=== PATIENT | female | born 1995 | race Caucasian/White ===

== ENCOUNTER 2018-02-16 15:19 | Emergency (ER) | payer BC ==
[2018-02-16 15:59] VITALS: BP 114/69
--- NOTE | 2018-02-16 16:25 | UC ---
Respiratory Complaint HPI - HPI Summary HPI Summary: Pt presents with c/o dry, non productive cough X 2 weeks. Denies, fever, URI like symptoms or hx of asthma. - History of Current Complaint Chief Complaint: UCRespiratory Stated Complaint: COUGH X 2 WKS Time Seen by Provider: 02/16/18 16:03 Hx Obtained From: Patient Hx Last Menstrual Period: 02/11/18 ?: No Onset/Duration: Sudden Onset, Lasting Weeks, Still Present Timing: Intermittent Episodes Severity Initially: Mild Severity Currently: None Pain Intensity: 0 Character: Cough: Nonproductive Aggravating Factors: Deep Breaths, Recumbent Position Alleviating Factors: Spontaneous Resolution Associated Signs And Symptoms: Positive: Negative - Risk Factors Pulmonary Embolism Risk Factors: Negative Cardiac Risk Factors: Negative Pseudomonas Risk Factors: Negative Tuberculosis Risk Factors: Negative - Allergies/Home Medications Allergies/Adverse Reactions: Allergies Allergy/AdvReac Type Severity Reaction Status Date / Time No Known Allergies Allergy Verified 02/16/18 15:56 PMH/Surg Hx/FS Hx/Imm Hx Previously Healthy: Yes - Surgical History Surgical History: Yes Surgery Procedure, Year, and Place: right knee 2013 - Family History Known Family History: Positive: Cardiac Disease - Social History Occupation: Student [employer] Lives: Dormitory/Roommates Alcohol Use: Occasionally Substance Use Type: None Smoking Status (MU): Never Smoked Tobacco Have You Smoked in the Last Year: No - Immunization History Vaccination Up to Date: Yes Review of Systems All Other Systems Reviewed And Are Negative: Yes Constitutional: Positive: Negative Skin: Positive: Negative Eyes: Positive: Negative ENT: Positive: Negative Respiratory: Positive: Cough Cardiovascular: Positive: Negative Gastrointestinal: Positive: Negative Genitourinary: Positive: Negative Motor: Positive: Negative Neurovascular: Positive: Negative Musculoskeletal: Positive: Negative Neurological: Positive: Negative Psychological: Positive: Negative Is Patient Immunocompromised?: No Physical Exam Triage Information Reviewed: Yes Appearance: Well-Appearing Vital Signs: Initial Vital Signs Temp 98.1 F 02/16/18 15:55 Pulse 67 02/16/18 15:55 Resp 14 02/16/18 15:55 BP 114/69 02/16/18 15:55 Pulse Ox 98 02/16/18 15:55 Vital Signs Reviewed: Yes Eye Exam: Normal ENT Exam: Normal Dental Exam: Normal Neck exam: Normal Respiratory Exam: Normal Cardiovascular Exam: Normal Musculoskeletal Exam: Normal Neurological Exam: Normal Psychological Exam: Normal Skin Exam: Normal UC Diagnostic Evaluation - Laboratory O2 Sat by Pulse Oximetry: 98 Respiratory Course/Dx - Differential Dx/Diagnosis Differential Diagnosis/HQI/PQRI: Bronchitis Provider Diagnoses: reactive airway. cough Discharge - Sign-Out/Discharge Documenting (check all that apply): Patient Departure All imaging exams completed and their final reports reviewed: No Studies - Discharge Plan Condition: Stable Disposition: HOME Prescriptions: Cetirizine* [ZyrTEC 10 MG TAB*] 10 mg PO DAILY #10 tab predniSONE TAB* [Deltasone 20 MG TAB*] 20 mg PO DAILY #4 tab Patient Education Materials: Acute Cough (ED) Referrals: [facility] [Outside] - If Needed No Primary Care Phys,NOPCP [Primary Care Provider] - - Billing Disposition and Condition Condition: STABLE Disposition: Home
== END 2018-02-16 16:33 | disposition home or self-care (01) ==
LOC: UCCORT 15:19
DX: J45.909 Unspecified asthma, uncomplicated (principal); R05 Cough
CPT/HCPCS: 99202; G0463

== ENCOUNTER 2019-02-13 12:05 | Emergency (ER) | payer BC ==
[2019-02-13 14:02] VITALS: BP 134/75
--- NOTE | 2019-02-13 14:10 | UC ---
Complaint Female HPI - HPI Summary HPI Summary: 24 y/o female present to the urgent care c/o FIELD, body aches, chills, night swats , nasal congestion w/ clear nasal discharge and lower back pain for the past 2 days. Pt also c/o of itchy vaginal discharge w/ slight itchiness for the past week. Pt denies fever, SOB, cough, chest pain, dizziness, abdominal pain, flank pain, pelvic pain, dysuria or Hx of STD's. LMP:02/09/2019 w/ regular menstrual cycles. She has not taken anything to alleviate symptoms. - History Of Current Complaint Chief Complaint: UCGeneralIllness Stated Complaint: FEVER, CHILLS, BACK PAIN Time Seen by Provider: 02/13/19 13:59 Hx Obtained From: Patient Hx Last Menstrual Period: 02/09 Onset/Duration: Gradual Onset, Lasting Weeks - 1 week vaginal discharge, Still Present, Other - FIELD and body aches , celar nasal congestion x 3 days Timing: Lasting Weeks - 1 week vaginal discharge Severity Initially: Mild Severity Currently: Mild Pain Intensity: 4 - FIELD and body aches Pain Scale Used: 0-10 Numeric Character: Dull Aggravating Factor(s): Lluveras Alleviating Factor(s): Nothing Associated Signs And Symptoms: Positive: Back Pain - lower mild, Vaginal Discharge - w/ an odor. Negative: Nausea, Vomiting(# Of Episodes =), Genital Swelling, Genital Blisters - Risk Factors Ectopic Risk Factor: Negative Ovarian Torsion Risk Factor: Negative - Allergies/Home Medications Allergies/Adverse Reactions: Allergies Allergy/AdvReac Type Severity Reaction Status Date / Time No Known Allergies Allergy Verified 02/13/19 14:02 Home Medications: Home Medications Acetaminophen [Non-Aspirin] 650 mg PO Q10H PRN 02/13/19 [History Confirmed 02/13] Ibuprofen TAB* [Motrin TAB* 400 MG] 400 mg PO Q10H PRN 02/13/19 [History Confirmed 02/13/19] Norethindr/Eth Estradiol(Nf) [Lo Loestrin Fe (NF)] 1 tab PO QPM 02/13/19 [ History Confirmed 02/13/19] PMH/Surg Hx/FS Hx/Imm Hx Previously Healthy: Yes - Pt denies PMHX - Surgical History Surgical History: Yes Surgery Procedure, Year, and Place: right knee 2013 - Family History Known Family History: Positive: Cardiac Disease, Diabetes - Social History Occupation: Employed Full-time Lives: With Family Alcohol Use: Occasionally Substance Use Type: None Smoking Status (MU): Never Smoked Tobacco Have You Smoked in the Last Year: No - Immunization History Vaccination Up to Date: Yes Review of Systems All Other Systems Reviewed And Are Negative: Yes Constitutional: Positive: Chills, Fatigue, Other - body aches Skin: Positive: Negative Eyes: Positive: Negative ENT: Positive: Nasal Discharge - clear, Sinus Congestion Respiratory: Positive: Negative Cardiovascular: Positive: Negative Gastrointestinal: Positive: Negative Genitourinary: Positive: Vaginal/Penile Itching, Vaginal/Penile Discharge - white, Other - mild lower back pain Motor: Positive: Negative Neurovascular: Positive: Negative Musculoskeletal: Positive: Negative Neurological: Positive: Headache Psychological: Positive: Negative Is Patient Immunocompromised?: No Physical Exam - Summary Physical Exam Summary: Vital signs: reviewed General: well developed, well nourished female adolescent sitting in the examining table w/o any acute distress. Head: Normocephalic, no lesions. Eyes: PERRLA, EOM's full, conjunctiva clear, fundi grossly normal. Ears: EAC's clear, TM's normal. Nose: Mucosa edmatous w/ clear nasal discharge,, no obstruction. Throat: Clear, no exudates, no lesions. Neck: Supple, no masses, no thyromegaly, no bruits. Chest: Lungs clear, no rales, no rhonchi, no wheezes. Heart: RR, no murmurs, no rubs, no gallops. Abdomen: Soft, no tenderness, no masses, BS normal. Pelvic: I was assisted by nurse Brina. External genitalia within normal limits. There is no lesions there is no masses noted. Speculum exam: The vaginal moncada are within normal limits w/ greyish white vaginal discharge, no lesions or rashes. The cervix is closed with no lesions or masses. There is no CMT's, and no adnexal masses. Sample sent to Lab for Affirm panel. Rectal: No lesions, no hemorrhoids, Back: Normal curvature, no tenderness. Extremities: FROM, no deformities, no edema, no erythema. Neuro: Physiological, no localizing findings. Skin: Normal, no rashes, no lesions noted. Triage Information Reviewed: Yes Vital Signs: Initial Vital Signs Temp 98.6 F 11/08/19 13:53 Pulse 95 02/13/19 13:53 Resp 18 02/13/19 13:53 BP 134/75 02/13/19 13:53 Pulse Ox 100 02/13/19 13:53 Complaint Female Dx - Course Course Of Treatment: 24 y/o female present to the urgent care c/o FIELD, body aches, chills, night swats , nasal congestion w/ clear nasal discharge and lower back pain for the past 2 days. Pt also c/o of itchy vaginal discharge w/ slight itchiness for the past week. Pt denies fever, SOB, cough, chest pain, dizziness, abdominal pain, flank pain, pelvic pain, dysuria or Hx of STD's. LMP:02/09/2019 w/ regular menstrual cycles. She has not taken anything to alleviate symptoms. Hx obtained. Pt is hemodynamically stable, Vitals : WNL. Pt w/ URI on PE. Rapid influenza A&B, negative. I was assisted by Nurse Gonsalves for pelvic exam. Pt w/ a greyish white cottage cheese vaginal discharge on pelvic examination. UA: trace of blood. Pt still w/ scant menstrual cycle. Pt w/ probably Vulvovaginal candidiasis and BV. Pt Rt Metrogel and Fluconazole PO. as directed below to alleviate symptoms. Sample sent to Lab for Affirm panel to r/o any abnormality. Pt will be notified of result. UA: trace of leukesterase. Pt advised symptomatic treatment for her URI symptoms. If symptoms do not improve to return to the urgent care or f/u with PCP. Pt understood and agreed. Left the clinic ambulating. - Differential Dx/Diagnosis Differential Diagnosis/HQI/PQRI: Appendicitis, Cervicitis, Ovarian Torsion, Pelvic Inflammatory Disease, , Sexually Transmitted Disease, Urinary Tract Infection Provider Diagnosis: Bacterial vaginosis, Vaginal candidiasis, Upper respiratory infection Discharge ED - Sign-Out/Discharge Documenting (check all that apply): Patient Departure - d/c home All imaging exams completed and their final reports reviewed: No Studies - Discharge Plan Condition: Stable Disposition: HOME Prescriptions: Fluconazole 150 MG TAB* [Diflucan 150 MG TAB*] 150 mg PO ONCE #1 tablet metroNIDAZOLE VAGINAL 0.75%* 1 applic VAGINAL BEDTIME #1 hugo Patient Education Materials: Bacterial Vaginosis (ED), Upper Respiratory Infection (ED) Referrals: [facility] [place] [facility] [Outside] - 3 Days Additional Instructions: 1-Please take ibuprofen PO q6-8hrs prn as instructed after meals to alleviate pain and swelling. Increase fluid intake, eat well, rest and avoid strenuous exercise 2- Please apply Metrogel cream and take Fluconazole PO as directed to alleviate your vaginal discharge. 3- Specimen were sent to lab, if anything abnormal you will receive a call from us for further treatment. 4-If not improvement of symptoms please return to the urgent care or f/u with your CLAIMS COLLECTOR for further treatment 5- UA: negative, test: negative - Billing Disposition and Condition Condition: STABLE Disposition: Home - Attestation Statements Provider Attestation: Per institutional requirements, I have reviewed the chart, however, I was not consulted specifically or made aware of this patient by the midlevel provider. I did not personally evaluate, interact with , or disposition this patient.
[2019-02-13 14:47] LABS: Influenza A Molecular NEGATIVE (Negative); Influenza B Molecular NEGATIVE (Negative)
== END 2019-02-13 15:28 | disposition home or self-care (01) ==
LOC: UCCORT 12:05
DX: N76.0 Acute vaginitis (principal); B37.3 Candidiasis of vulva and vagina; J06.9 Acute upper respiratory infection, unspecified
CPT/HCPCS: 81003; 84702; 87480; 87510; 99212; G0463

== ENCOUNTER 2019-05-22 12:57 | Emergency (ER) | payer BC ==
[2019-05-22 14:58] VITALS: BP 112/75
[2019-05-22 15:27] LABS: Influenza A Molecular Negative (Negative); Influenza B Molecular Negative (Negative)
--- NOTE | 2019-05-22 15:33 | UC ---
Respiratory Complaint HPI - HPI Summary HPI Summary: 24 yo female with onset yesterday of fever and chills runny nose rare cough no FIELD no myalgias no cp or sob no n/v/d - History of Current Complaint Chief Complaint: UCGeneralIllness Stated Complaint: FEVER,CONGESTION Time Seen by Provider: 05/22/19 14:56 Hx Obtained From: Patient Hx Last Menstrual Period: 05/17/19 Onset/Duration: Gradual Onset, Lasting Hours Timing: Constant Severity Initially: Mild Severity Currently: Mild Pain Intensity: 0 Pain Scale Used: 0-10 Numeric Character: Cough: Nonproductive Aggravating Factors: Nothing Alleviating Factors: Nothing Associated Signs And Symptoms: Positive: Fever, Chills, Nasal Congestion - Allergies/Home Medications Allergies/Adverse Reactions: Allergies Allergy/AdvReac Type Severity Reaction Status Date / Time No Known Allergies Allergy Verified 05/22/19 14:58 PMH/Surg Hx/FS Hx/Imm Hx Previously Healthy: Yes - Surgical History Surgical History: Yes Surgery Procedure, Year, and Place: right knee 2013 - Family History Known Family History: Positive: Cardiac Disease, Hypertension, Diabetes - Social History Alcohol Use: Occasionally Substance Use Type: None Smoking Status (MU): Never Smoked Tobacco Have You Smoked in the Last Year: No - Immunization History Vaccination Up to Date: Yes Review of Systems All Other Systems Reviewed And Are Negative: Yes Constitutional: Positive: Fever, Chills Skin: Positive: Negative Eyes: Positive: Negative ENT: Positive: Nasal Discharge Respiratory: Positive: Cough Cardiovascular: Positive: Negative Gastrointestinal: Positive: Negative Genitourinary: Positive: Negative Motor: Positive: Negative Neurovascular: Positive: Negative Musculoskeletal: Positive: Negative Neurological/Mental Status: Positive: Negative Psychological: Positive: Negative Physical Exam Triage Information Reviewed: Yes Appearance: Well-Appearing, No Pain Distress, Well-Nourished Vital Signs: Initial Vital Signs Temp 98.2 F 05/22/19 14:54 Pulse 91 05/22/19 14:54 Resp 14 05/22/19 14:54 BP 112/75 05/22/19 14:54 Pulse Ox 100 05/22/19 14:54 Vital Signs Reviewed: Yes Eyes: Positive: Conjunctiva Clear ENT: Positive: Hearing grossly normal, Pharynx normal, Nasal congestion, TMs normal, Uvula midline. Negative: Nasal drainage, Tonsillar swelling, Tonsillar exudate, Trismus, Muffled voice, Hoarse voice, Sinus tenderness Dental Exam: Normal Neck: Positive: Supple, Nontender, No Lymphadenopathy Respiratory: Positive: Lungs clear, Normal breath sounds, No respiratory distress, No accessory muscle use Cardiovascular: Positive: RRR, No Murmur. Negative: Tachycardia Musculoskeletal: Positive: ROM Intact, No Edema Neurological: Positive: Alert Psychological Exam: Normal Skin Exam: Normal Diagnostics - Laboratory Lab Results: influenza - Respiratory Course/Dx - Differential Dx/Diagnosis Provider Diagnosis: Viral URI with cough Discharge ED - Sign-Out/Discharge Documenting (check all that apply): Patient Departure All imaging exams completed and their final reports reviewed: No Studies - Discharge Plan Condition: Stable Disposition: HOME Patient Education Materials: Upper Respiratory Infection (ED) Referrals: [facility] [Outside] - If Needed No Primary Care Phys,NOPCP [Primary Care Provider] - Additional Instructions: your influenza test was negative rest fluids tylenol or advil recheck in 4-5 days if not better - Billing Disposition and Condition Condition: STABLE Disposition: Home
== END 2019-05-22 15:39 | disposition home or self-care (01) ==
LOC: UCCORT 12:57
DX: J06.9 Acute upper respiratory infection, unspecified (principal); R05 Cough
CPT/HCPCS: 99211; G0463